=== PATIENT | male | born 1985 | race Caucasian/White ===

== ENCOUNTER 2021-01-30 12:37 | Outpatient (CLI) | payer BC, SELFPAY ==
--- NOTE | ~2021-01-30 | MR_ITS ---
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 TECHNIQUE: Magnetic resonance imaging (MRI) of the right wrist was performed without intravenous cont rast. Sequences performed include axial PD-weighted FSE and PD-weighted FS FSE, coronal PD-weighted F S FSE and T1-weighted SE, and sagittal PD-weighted FS FSE and PD-weighted FSE. COMPARISON: None FINDINGS: Intrinsic ligaments: The scapholunate and lunotriquetral ligaments are normal. Triangular fibrocartilage complex (TFCC): There is a prominent corticated ossicle along the distal margin of the truncated appearing ulnar styl oid process likely representing a chronic nonunited fracture fragment. The fragment however appears l arger than would be expected for the [place] ulnar styloid process suggesting secondary hypertrophy. T here are couple additional small ossicles which could represent additional chronic nonunited small contreras ne fragments or heterotopic ossification related to chronic soft tissue injury which are positioned p almar to the ulnar styloid process and along the palmar side of the fovea. The central fibrocartilagi nous disc of the triangular fibrocartilage complex appear grossly intact as do its radial, foveal and ulnar styloid process attachments, the latter contiguous with the previous noted likely chronic nonu nited fracture fragment. There is thickening and mild increased signal along the dorsal radial ulnar ligament consistent with partial tear which may be chronic. Extensor wrist: Extensor tendons of the wrist are normal. No tenosynovitis. Flexor wrist: The flexor tendons of the wrist are normal. No abnormality in the carpal tunnel with normal median n erve. Guyon's canal: Guyon's canal including the ulnar nerve and artery are normal. Bones/other: Prominent intraosseous ganglion cyst at the distal pole of the capitate. Normal marrow signal. No fra cture, erosions, avascular necrosis or pathologic marrow replacing process. 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 The previous noted ossicle at the t ip of the ulnar styloid process abuts the proximal articular surface of the triquetrum. IMPRESSION: 1. 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 2. Age-indeterminate partial tear of the dorsal radioulnar ligament which have occurred at the time o f the suspected ulnar styloid avulsion fracture. Reviewed, dictated and finalized at location A. IMPRESSION: 1. 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 2. Age-indeterminate partial tear of the dorsal radioulnar ligament which have occurred at the time of the suspected ulnar styloid avulsion fracture.
== END 2021-01-30 12:38 | disposition home or self-care (01) ==
PROVIDERS: PCP Internal Medicine; Visit Provider Orthopaedic Surgery
DX: M18.11 Unilateral primary osteoarthritis of first carpometacarpal joint, right hand (principal); S63.591A Other specified sprain of right wrist, initial encounter
CPT/HCPCS: 73221

== ENCOUNTER 2021-03-08 16:02 | Emergency (ER) | payer BC, SELFPAY ==
--- NOTE | ~2021-03-08 | XR_ITS ---
EXAMINATION: XR chest 2V DATE: 03/08/2021 18:13 INDICATION: Dyspnea, palpitations and lightheadedness TECHNIQUE: PA and lateral views of the chest were obtained. COMPARISON: Chest radiograph dated 10/26/2019 FINDINGS: The lungs remain clear with no focal airspace opacities, pulmonary edema, pleural effusion or pneumot horax. The cardiomediastinal silhouette is normal. Mild thoracic spondylosis. IMPRESSION: 1. No acute cardiopulmonary disease. Reviewed, dictated and finalized at location A.
[2021-03-08 16:54] VITALS: BP 137/94; PULSE 88; RESP 20; TEMP 36.8; O2SAT 98
--- NOTE | 2021-03-08 16:57 | ED.ARRPALP ---
HPI - Arrhythmia/Palpitations General Chief Complaint: Arrhythmia/Palpitations Stated Complaint: sob weak dizzy Time Seen by Provider: 03/08/21 17:06 Source: patient Mode of arrival: ambulatory Limitations: no limitations History of Present Illness HPI narrative: 35-year-old man comes in today complaining of his heart beating harder than usual this morning after he woke up and then having some lightheadedness after lifting a bicycle later this morning. States he has had some mild shortness of breath as well. Patient states that he has felt fatigued and had mild left upper chest pain that did not radiate this morning it resolved after a few minutes. Has had none since. States that he had alcohol yesterday and he has been drinking liquids well today. He work in construction. He denies any recent cough or cold symptoms, diarrhea, nausea, vomiting, headaches, head injuries, prior syncopal episodes or family history of sudden cardiac . MD complaint: palpitations Onset (ago): hour(s) Duration: constant Severity: moderate Context: occurred during rest Associated symptoms: chest pain and other ( Lightheaded while lifting.) Related Data Home Medications Medication Instructions Recorded Confirmed No Home Medications 01/05/21 03/08/21 Allergies Allergy/AdvReac Type Severity Reaction Status Date / Time No Known Allergies Allergy Unknown Verified 02/16/21 08:24 Review of Systems Review of Systems: All systems reviewed & are unremarkable except as noted in HPI and below Constitutional: Constitutional: Denies chills, Reports fatigue and Denies fever(s) Eyes: Eyes: Denies change in vision and Denies photophobia ENT: Denies dysphagia, Denies nasal congestion and Denies sore throat Cardiovascular: Cardiovascular: Reports chest pain, Denies rapid heart rate, Denies radiating jaw, neck or arm pain and Denies slow heart rate Respiratory: Respiratory: Reports as per HPI, Denies cough, Reports dyspnea and Denies wheezing Gastrointestinal: Gastrointestinal: Denies diarrhea, Denies nausea and Denies vomiting Genitourinary: Genitourinary: Denies hematuria, Denies dysuria and Denies urinary frequency Musculoskeletal: Musculoskeletal: Denies arthralgias, Denies joint swelling and Denies muscle cramps Neurologic: Denies vertigo, Denies dizziness and Denies syncope Endocrine: Endocrine: Denies polydipsia and Denies polyuria Hematologic/Lymphatic: Hematologic/Lymphatic: Denies easy bleeding and Denies easy bruising Allergic/Immunologic: Allergic/Immunologic: Denies lip swelling and Denies throat swelling PMFSH Past Medical History Medical History Chronic headaches Light headedness Right wrist tendinitis TFCC (triangular fibrocartilage complex) tear Surgical History Surgical History History of ankle surgery 2000 Social History Social History Smoking packs per day: 1 Smoking cigarettes per day: 20.0 Years smoked: 10 Smoking pack-years: 10.00 Tobacco type: cigarettes Alcohol intake: current Drinks per week: 6 Substance use: current Substance use type: does not use Gender identity (if verbalized by the patient): Male Exam Const: General: healthy appearing, no acute distress and alert Orientation/consciousness: patient oriented x3 Limitations: no limitations HENMT: Head: normal to inspection Ears: external ears normal, TM's normal bilaterally and EAC's normal General nose exam: Normal nares present Face and sinus: normal facial exam Mouth: Yes moist mucous membranes Throat: posterior oropharynx normal Eyes: Conjunctivae: conjunctivae normal Pupils: Equal, round and reactive pupils present EOM: EOMs intact bilaterally Neck: Neck: normal visual inspection and no lymphadenopathy Resp: Effort & Inspection: normal resp
--- NOTE | 2021-03-08 16:59 | ECG_ITS ---
Measurements Intervals [place] Rate: P: [place]: QRS: QRSD: T: QT: QTc: Interpretive Statements SINUS RHYTHM INCOMPLETE RIGHT BUNDLE BRANCH BLOCK BASELINE ARTIFACT- AVL, AVF BORDERLINE ECG Electronically Signed On 03-09-2021 12:29:17 CDT by Donnie Carreno D.O.
[2021-03-08 17:14] LABS: Basophils Absolute Auto 0.05 K/mm3 (0.00-0.10); Basophils Percent Auto 0.5 % (0.0-1.0); Eosinophils Absolute Auto 0.24 K/mm3 (0.02-0.50); Eosinophils Percent Auto 2.2 % (1.0-6.0); Hematocrit 45.9 % (40.0-54.0); Immature Granulocyte Absolute 0.03 K/mm3 (0.00-0.00); Immature Granulocyte Percent A 0.3 % (0.0-0.0); Lymphocytes Absolute Auto 2.31 K/mm3 (1.10-4.50); Lymphocytes Percent Auto 21.2 % (18.0-42.0); Mean Corpuscular HGB Conc 34.9 g/dL (32.0-36.0); Mean Corpuscular Hemoglobin 32.1 pg (27.0-31.0); Mean Platelet Volume 9.7 fl (8.7-11.0); Monocytes Percent Auto 9.2 % (2.0-11.0); Neutrophils Absolute Auto 7.3 K/mm3 (1.7-7.2); Neutrophils Percent Auto 66.6 % (50.0-70.0); Platelet Count Result 326 K/mm3 (150-420); Red Blood Count 4.99 M/mm3 (4.70-6.10); Red Cell Distribution Width 12.1 % (11.6-14.4); White Blood Count 10.9 K/mm3 (4.8-10.8)
[2021-03-08 17:15] LABS: Add Urine Microscopic? NO; Appearance Urine Clear (Clear); Bilirubin Urine Negative (Negative); Blood Urine Negative (Negative); Color Urine Yellow (Yellow); Glucose Urine UA Negative (Negative); Ketones Urine Negative (Negative); Leukocyte Esterase Ur Negative LEU/UL (Negative); Nitrate Urine Negative (Negative); Protein Urine Negative (Negative); Specific Grav Ur 1.025 (1.010-1.020); Urobilinogen Urine 0.2 mg/dL (0.2-1.0)
[2021-03-08 17:29] LABS: D Dimer 0.19 mg/L (0.19-0.50); INR 0.9; Partial Thromboplastin Time 26.3 SEC (23.90-30.70); Prothrombin Time 10.1 Seconds (9.50-12.10)
[2021-03-08 17:34] LABS: Lactic Acid Reflex 1.2 mmol/L (0.4-2.0)
[2021-03-08 17:40] LABS: Alanine Aminotransferase 42 U/L (16-63); Albumin Level 4.1 g/dL (3.4-5.0); Alkaline Phosphatase 80 U/L (46-116); Anion Gap 6 mmol/L (8-16); Aspartate Amino Transferase 22 U/L (15-37); Bilirubin,Total 0.5 mg/dL (0.00-1.00); Blood Urea Nitrogen 11 mg/dL (7-18); Calcium 9.3 mg/dL (8.5-10.1); Carbon Dioxide 29 mmol/L (21-32); Chloride 102 mmol/L (98-108); Estimated CRCL calculation 98 ml/min; Estimated Glomerular Filt Rate > 60; Glucose 114 mg/dL (70-99); Osmolality Calculated 284 mOsm/kg (285-295); Sodium 137 mmol/L (136-145); Thyroid Stimulating Hormone Reflex 1.15 u/IU/mL (0.36-3.74); Total Protein 7.4 g/dL (6.4-8.2); Troponin I 4.2 ng/L (0.00-60.4)
[2021-03-08 17:53] VITALS: BP 114/82; BP 126/85; PULSE 68; PULSE 96
[2021-03-08 18:44] VITALS: BP 132/91; PULSE 60; RESP 20; TEMP 36.7; O2SAT 99
== END 2021-03-08 18:46 | disposition home or self-care (01) ==
PROVIDERS: Emergency Provider Emergency Medicine; PCP Internal Medicine
DX: E86.0 Dehydration (principal); R00.2 Palpitations
CPT/HCPCS: 36415; 71046; 80053; 81003; 83605; 84443; 84484; 85025; 85380; 85610; 85730; 93005; 99283; 99284

== ENCOUNTER 2021-11-27 16:08 | Outpatient (CLI) | payer BC, SELFPAY ==
--- NOTE | ~2021-11-27 | XR_ITS ---
EXAMINATION: XR shoulder RT min 2V INDICATION: Right shoulder pain TECHNIQUE: Four views of the right shoulder are submitted. COMPARISON: 03/08/2021 FINDINGS: Normal alignment. No fracture. Glenohumeral and acromioclavicular joint spaces are normal. Soft tissues are unremarkable. IMPRESSION: 1. No acute osseous abnormality. Reviewed, dictated and finalized at location F. [employer]
== END 2021-11-27 16:09 | disposition home or self-care (01) ==
LOC: CHSIMG 16:09
PROVIDERS: PCP Internal Medicine; Visit Provider Internal Medicine
DX: M25.511 Pain in right shoulder (principal)
CPT/HCPCS: 73030

== ENCOUNTER 2022-06-24 15:50 | Emergency (ER) | payer BC, SELFPAY ==
[2022-06-24 16:00] VITALS: BP 152/83; PULSE 75; RESP 14; TEMP 36.6; O2SAT 98
--- NOTE | 2022-06-24 16:28 | ED.ANIMALBIT ---
HPI - Animal Bite General Chief Complaint: Animal Bite Stated Complaint: bit by stray cat - yesterday morning Time Seen by Provider: 06/24/22 15:55 Source: patient Mode of arrival: ambulatory History of Present Illness HPI narrative: This is a 37-year-old male that had a cat bite that occurred yesterday was left index finger and right index finger others currently no redness no warmth mild tenderness with no drainage no fever chills no shortness of breath. complaint: animal bite Onset (ago): day(s) Animal: cat Description of animal: unknown animal Mechanism: bite Location - Extremities: Right: hand Pain description: sharp Related Data Patient tetanus UTD: No Home Medications Medication Instructions Recorded Confirmed escitalopram oxalate 10 mg tablet 10 mg PO DAILY 06/24/22 06/24/22 Allergies Allergy/AdvReac Type Severity Reaction Status Date / Time No Known Allergies Allergy Unknown Verified 06/24/22 16:10 Review of Systems Review of Systems: All systems reviewed & are unremarkable except as noted in HPI and below PMFSH Past Medical History Medical History Chronic headaches Light headedness Right wrist tendinitis TFCC (triangular fibrocartilage complex) tear Surgical History Surgical History History of ankle surgery 2000 Social History Social History Smoking packs per day: 1 Smoking cigarettes per day: 20.0 Years smoked: 10 Smoking pack-years: 10.00 Smoking status: Current every day smoker Tobacco type: cigarettes Alcohol intake: current Drinks per week: 6 Substance use: current Substance use type: does not use Gender identity (if verbalized by the patient): Male Exam Const: General: healthy appearing and no acute distress Nutritional Appearance: well nourished HENMT: Head: normal to inspection Mouth: Yes Normal oral and palatal mucosa present Eyes: Conjunctivae: conjunctivae normal Pupils: Equal, round and reactive pupils present EOM: EOMs intact bilaterally Neck: Neck: normal visual inspection, no lymphadenopathy and no meningeal signs Chest: Chest palpation & inspection: normal inspection of the chest Resp: Effort & Inspection: normal respiratory effort Cardio: Rate: regular rate Rhythm: regular rhythm GI: GI Palp: Yes Soft to palpation Urinary Catheter: Urinary Catheter: patent and draining Back/Spine/Pelvis: Back: no CVA tenderness Skin: General skin exam: normal color Rashes: no rashes Wounds: no wounds Neuro: General: patient oriented x3 Cranial nerves: Yes Nystagmus not present Extrem: General: normal to inspection and no clubbing, cyanosis or edema Psych: Mental Status: mental status grossly normal Course Course Emergency Course: Cat bite to bilateral index finger, patient received Adacel and will send Augmentin to his local pharmacy Vital Signs Vital signs: Vital Signs Temperature 36.6 C 06/24/22 16:00 Pulse Rate 75 06/24/22 16:00 Respiratory Rate 14 06/24/22 16:00 Blood Pressure 152/83 H 06/24/22 16:00 Pulse Oximetry 98 06/24/22 16:00 Oxygen Delivery Room Air 06/24/22 16:00 Temperature 36.6 C 06/24/22 16:00 Pulse Rate 75 06/24/22 16:00 Respiratory Rate 14 06/24/22 16:00 Blood Pressure 152/83 H 06/24/22 16:00 Pulse Oximetry 98 06/24/22 16:00 Oxygen Delivery Room Air 06/24/22 16:00 Critical Care Time Critical Care Time Critical Care Time: No Discharge Plan Discharge Clinical Impression: Cat bite Patient Disposition: Home, Self-Care Condition: Stable Instructions: Antibiotic Form, Animal Bite (ED) Additional Instructions: take medicine as prescribed and follow-up primary care physician if symptoms persist or worsen. Prescriptions: New amoxicillin-pot clavulanate [Augmentin] 500-125 mg
[2022-06-24 17:05] VITALS: BP 125/66; PULSE 65; RESP 14; TEMP 36.6; O2SAT 100
[2022-06-24] MEDS: TETANUS,DIPHTHERIA,AC PERTUSSIS ADULT 0.5 ML (ADACEL) IM (17:06)
--- NOTE | 2022-06-28 20:59 | PC.NURSE ---
this pt stated to this nursing during initial exam that animal control was at his home and took the kitten with them. no bite report form was completed due to this information.
== END 2022-06-24 17:11 | disposition home or self-care (01) ==
PROVIDERS: Emergency Provider Emergency Medicine; PCP Internal Medicine
DX: S61.251A Open bite of left index finger without damage to nail, initial encounter (principal); W55.01XA Bitten by cat, initial encounter
CPT/HCPCS: 90471; 90715; 99283

== ENCOUNTER 2023-08-19 07:36 | Outpatient (CLI) | payer BC, SELFPAY ==
--- NOTE | ~2023-08-19 | US_ITS ---
EXAMINATION: US right upper quadrant DATE: 08/19/2023 08:04 INDICATION: Elevated liver enzymes TECHNIQUE: Multiple grayscale and Doppler ultrasound images of the abdomen were obtained. COMPARISON: None available FINDINGS: The head and body of the pancreas are normal. The pancreatic tail is obscured by bowel gas. The liver demonstrates increased echogenicity, heterogenous echotexture, and decreased through trans mission. No surface nodularity. Normal hepatopetal flow in the main portal vein. The gallbladder is n ormal with no abnormal wall thickening, pericholecystic fluid or stones. The normal common bile duct measures 4 mm. There was no sonographic Moore sign. IMPRESSION: 1. Diffuse hepatic steatosis. Reviewed, dictated and finalized at location B.
== END 2023-08-19 07:37 | disposition home or self-care (01) ==
LOC: CHSIMG 07:39
PROVIDERS: PCP Internal Medicine; Visit Provider Internal Medicine
DX: R74.01 Elevation of levels of liver transaminase levels (principal); K76.0 Fatty (change of) liver, not elsewhere classified
CPT/HCPCS: 76705